=== PATIENT | female | born 1990 | race Two or more races ===

== ENCOUNTER → 2024-03-27 | Outpatient (CLI) | payer MEDICAID, SELFPAY ==
--- NOTE | 2024-03-27 12:42 | XR_ITS ---
Examination: OB Transvaginal ultrasound of the pelvis, complete Technique: Transvaginal sonographic images pelvis performed using taylor scale imaging Exam date and time: March 27, 2024 1355 hours INDICATIONS: Vaginal bleeding beginning 2 days ago FINDINGS: Uterus 10.0 x 6.0 x 6.2 cm pole 0.5 cm corresponds to 6 weeks 2 days gestational age Cardiac motion 120 bpm Subchorionic hemorrhage 2.6 x 1.0 x 2.6 cm Ovaries obscured by bowel gas IMPRESSION: Viable intrauterine gestation 6 weeks 2 days Given the subchorionic hemorrhage, suggest short-term follow-up transvaginal pelvic sonography.
== END | disposition home or self-care (01) ==
LOC: CDIM 12:22
PROVIDERS: Referring Provider Obstetrics & Gynecology; Visit Provider Obstetrics & Gynecology
DX: O20.0 Threatened abortion (principal); Z3A.01 Less than 8 weeks gestation of pregnancy
CPT/HCPCS: 76817

== ENCOUNTER → 2024-05-15 | Outpatient (CLI) | payer MEDICAID, SELFPAY ==
--- NOTE | 2024-05-15 10:26 | XR_ITS ---
Examination: Complete OB ultrasound, less than 14 weeks, transabdominal Date and time of exam: May 15, 2024 at 1110 hrs. Indications: Decreased movement beginning several days ago Technique: Obstetrical ultrasound images less than 14 weeks performed via transabdominal imaging Findings: A normal shaped single intrauterine gestation is present in the uterus. pole 7.2 cm corresponds to 13 weeks 2 days gestational age Cardiac motion 145 BPM Ultrasonographic survey of visible and placental structures unremarkable. Amniotic fluid volume appears appropriate for this estimated gestational age. Right ovary 2.6 cm arterial flow Left ovary 3.4 cm arterial flow Impression: Viable intrauterine gestation 13 weeks 2 days.
== END | disposition home or self-care (01) ==
LOC: SDIM 10:10
PROVIDERS: Referring Provider Obstetrics & Gynecology; Visit Provider Obstetrics & Gynecology
DX: O36.8120 Decreased fetal movements, second trimester, not applicable or unspecified (principal); Z3A.13 13 weeks gestation of pregnancy
CPT/HCPCS: 76801

== ENCOUNTER 2024-11-17 13:14 | Inpatient (IN) | payer MEDICAID, SELFPAY ==
[2024-11-17] VITALS (31 sets, daily range): BP systolic 91–123; BP diastolic 52–73; PULSE 73–96; RESP 16–99; TEMP 36.7–37.1; O2SAT 97–99; BMI 39.5
[2024-11-17 14:03] LABS: ROM Kit Exp Date# 01/18/2028; ROM Kit Lot # 58104371; Swb Mxed in Solvent 1 min? Yes
[2024-11-17 14:04] LABS: ROM Swab Mixed By: PATTC1; Rupture of Fetal Membranes Positive (Negative)
[2024-11-17] MEDS: RINGERS LACTATED 1000 ML 1,000 ML 100 ML IV ×2 (15:02→18:34)
[2024-11-17 15:05] LABS: Basophils # (Auto) 0.0 Thou/mm3 (0.0-0.2); Basophils % (Auto) 1 % (0-2.5); Eosinophils # (Auto) 0.1 Thou/mm3 (0.0-0.5); Eosinophils % (Auto) 1 % (0-10); Hematocrit 33.5 % (36.0-46.0); Hemoglobin 11.7 g/dL (12.0-16.0); Immature Granulocytes Auto 0.07 Thou/mm3 (0.00-0.00); Lymphocytes # (Auto) 1.7 Thou/mm3 (1.0-4.8); Lymphocytes % (Auto) 19 % (10-50); Mean Corpuscular HGB Conc 34.9 g/dl (31.0-37.0); Mean Corpuscular Hemoglobin 33.0 pg (25.0-35.0); Mean Corpuscular Volume 94 fL (80-100); Monocytes # (Auto) 0.5 Thou/mm3 (0.0-0.8); Monocytes % (Auto) 6 % (0-12); Neutrophils # (Auto) 6.4 Thou/mm3 (1.8-7.7); Neutrophils % (Auto) 73 % (37-80); Nucleated Red Blood Cell # 0.00 Thou/mm3 (0.00-0.00); Nucleated Red Blood Cell % 0 /100 WBC (0); Platelet Count 239 Thou/mm3 (140-440); RDW Standard Deviation 46.9 fL (36.4-46.3); Red Blood Count 3.55 Miln/mm3 (4.00-5.20); White Blood Count 8.8 Thou/mm3 (3.6-11.0)
[2024-11-17] MEDS: Ampicillin Inj 2,000 MG in SODIUM CHLORIDE 0.9% (POP) 100 ML 200 MG IV (15:07)
[2024-11-17 15:38] LABS: Syphilis Nonreactive (Nonreactive)
[2024-11-17] MEDS: Ampicillin Inj 1,000 MG in SODIUM CHLORIDE 0.9% (Popper) 50 ML 50 MG IV ×2 (18:33→23:01)
[2024-11-17] MEDS: OXYTOCIN in NS 30 units 30 UNIT/500 ML BAG IV ×2 (18:37→20:01)
--- NOTE | 2024-11-17 19:15 | ESHP_ITS ---
Documentation for date of: 11/17/24 OB Labor/Induct. HPI History of Present Illness Chief complaint: leakage of fluid : 5 Para: 4 Term pregnancies: 4 pregnancies: 0 Living children: 4 History of Abortions: Spontaneous and Elective: 0 History of Vaginal deliveries: 4 History of sections: No History of : No JAVIER: 11/14/24 Gestational Age (weeks): 40 Gestational Age (days): 3 History of present illness: Patient presents for loss of fluid, clear, that occurred at 1100. No regular/painful ctx. No vaginal bleeding. Normal movement. No fevers/chills. History of Present Adequate Care: Yes Narrative: Hx of 4 uncomplicated term , last was in 2021. Proven to 9lb4oz. Obesity, current BMI 39.6 Labs Maternal Blood Type: A Pos Labs: Positive: Rubella Titre and Group Beta Strep, Negative: RPR, Hepatitis B, HIV, Chlamydia and Gonorrhea and Unknown: Herpes Type 1, Herpes Type 2 and Covid-19 Review of Systems Review of Systems Narrative Review of Systems: Review of Systems Systems Reviewed: All systems reviewed, normal except as documented Constitutional Constitutional: Denies body ache(s), Denies chills, Denies fever(s) and Denies headache(s) ENT Ears, Nose, Mouth, and Throat: Denies headache(s) and Denies vertigo Cardiovascular Cardiovascular: Denies chest pain, Denies palpitations, Denies dyspnea and Denies syncope Respiratory Respiratory: Denies cough, Denies dyspnea Gastrointestinal Gastrointestinal: Denies nausea and Denies vomiting Neurologic Neurologic: Denies convulsions, Denies headache(s), Denies other visual disturbances, Denies syncope and Denies vertigo Past Medical History Family History OTHER FAMILY HX: non-contributory Surgical History SURGICAL: Negative Section Social History SOCIAL: No tobacco/ETOH/illicit drug use. , 4 children. Past Medical History Comments PMH COMMENT: Current BMI 39.6 Meds Home Medications and Allergies Home Medications ?Medication ?Instructions ?Recorded ?Confirmed ?Type Vitamin * 1 tab PO QDAY SUPPL EMENT 03/22/17 03/13/21 History #0 tabs Allergies Allergy/AdvReac Type Severity Reaction Status Date / Time No Known Allergies Allergy Verified 03/13/21 05:26 OB Exam Physical Exam Vital signs: Temp Pulse Resp BP Pulse Ox O2 Del Method 98.1 F 88 18 113/68 98 Room Air 11/17/24 18:41 11/17/24 18:49 11/17/24 18:41 11/17/24 18:49 11/17/24 14:14 11/17/24 18:41 Narrative: General: well developed, well nourished, no acute distress, conversant Cardiac: normal heart rate Lungs: breathing without distress Abdomen: soft, gravid, non-tender, no rebound or guarding Extremities: no edema of BLE Detailed Labor and Delivery Exam Dilation (cm): 3 Effacement (%): 60 Cervix position: mid station: -2 Consistency: soft Presentation: Vertex Membranes: ruptured Amniotic fluid: clear Baseline heart rate: 130 monitor accelerations: 15x15 monitor decelerations: None workforce planner variability: Moderate (11-25) Contraction frequency (min): no ctx pattern OB Results Labs 11/17/24 14:35 Labs: Short CBC 11/17/24 Range/Units 14:35 WBC 8.8 (3.6-11.0) Thou/mm3 Hgb 11.7 L (12.0-16.0) g/dL Hct 33.5 L (36.0-46.0) % Plt Count 239 (140-440) Thou/mm3 OB Assessment & Plan Assessment and Plan (1) Full-term PROM with onset of labor within 24 hours of rupture: Status: Acute Assessment and plan: Celeste is a 34yo with SIUP at 40&3wk with PROM, clear, at 1100. SCE: 360/-2. Vitals wnl, benign exam. Reassuring assessment. PMhx/ complicated by: Current BMI 39.6 [place], hx of x4 Proven to 9lb4oz. PNC with Dr. Walker Plan: -Admit to L&D -Establish IV, routine labs -CEFM -Clear liquid diet -Economic Forecaster/consent re: -GBS status positive, Ampicillin per protocol -IV pitocin per protocol -Anticipate -Safe to proceed (2) 40 weeks gestation of : Status: Acute (3) Positive GBS test: Status: Acute
[2024-11-17] MEDS: fentaNYL CIT INJ 50 mCg/ML AMP 2ML 100 MCG IVP (23:56)
[2024-11-18] VITALS (21 sets, daily range): BP systolic 98–247; BP diastolic 53–173; PULSE 66–144; RESP 14–18; TEMP 36.6–37.2; O2SAT 98
[2024-11-18] MEDS: FAMOTIDINE 20 MG TABLET 40 MG PO (00:29)
[2024-11-18] MEDS: IBUPROFEN TAB 400 MG TABLET 800 MG PO ×2 (02:05→15:27)
[2024-11-18] MEDS: METHYLERGONOVINE INJ 0.2 MG/ML VIAL IM (02:07)
[2024-11-18] MEDS: OXYTOCIN in NS 20 units 20 UNIT/1,000 ML BAG 125 UNIT IV (02:11)
--- NOTE | 2024-11-18 02:26 | PD.LDDELS ---
Data (Gerardo) Data Hx Section: No : 5 Term: 4 : 0 Livin Abortions: Spontaneous & Theraputic: 0 Delivery Data (Gerardo) Labor Data Initiation of labor: Augmentation Induction/Augmentation Agent: Pitocin ROM date: 11/17/24 ROM time: 11:00 Amniotic membrane rupture type: Spontaneous Amniotic fluid description: Clear Delivery Data Complete dilation date: 11/18/24 Complete dilation time: 01:32 delivery date: 11/18/24 [place] delivery time: 01:35 Placenta delivery date: 11/18/24 Placenta delivery time: 01:45 Delivered by: Paul Delivery nurse: Madison Moura nurse: Angelica Dolly Pusher at delivery: No Delivery Method Delivery method: Normal Vaginal Delivery Presentation: Vertex Anesthesia Type Anesthesia Type: None Placenta Placenta delivery description: Spontaneous Cord blood sent to lab: Yes cord blood collection: Cord Blood Type Episiotomy Episiotomy description: None EBL Estimated blood loss (ml): 350 Umbilical Cord cord description: 3 Vessels Additional Procedures Celeste is a 34yo s/p uncomplicated at 40&4wk after presenting with SROM, delivering at 0135 on 11/18/2024. On presentation, SCE was 3/60/-2. She progressed with pitocin augmentation to C/C/0 at which point she began pushing. She declined epidural. With good maternal pushing efforts, infant's head delivered OA and restituted AUDELIA. Left anterior shoulder delivered easily followed by posterior shoulder and corpus. had spontaneous cry and was vigorous. Apgars 8/9. placed on maternal abdomen where nose/mouth were suctioned and infant dried/stimulated. After approximately 2 minutes, cord was clamped x2 and cut by FOB. Cord blood collected for typing. With fundal massage and cord traction, placenta delivered spontaneously and intact with 3 vessel peripherally inserted cord. Bimanual massage performed and IV pitocin given per protocol with fundus then firm at u-3cm but deviated to the right. On query, it had been quite some time since patient last voided. Straight cath performed with >500ml clear urine emptied from bladder. Fundus then midline at u-2cm. Inspection of perineum and vagina revealed no lacerations. Sweep within cervix/JESS performed which retrieved a couple handfuls of clot. 0.2mg IM methergine given and bimanual massage performed with hemostasis noted. Cytotec 800mcg [place] placed for continued prophylaxis against bleeding. All counts correct x2. Mom and were doing well when I left the room. Celia Miller MD Complications Complications: none Data (Gerardo) Data [place]'s gender: Female Identification band number: [id number] weight (gms): 4090 g Weight (pounds): 9 lbs and 0.3 ozs [place] length: 51 cm 1 minute: 8 5 minutes: 9
[2024-11-18] MEDS: DOCUSATE SOD 100 MG CAPSULE PO ×2 (08:56→21:02)
[2024-11-18 09:46] LABS: Basophils # (Auto) 0.1 Thou/mm3 (0.0-0.2); Basophils % (Auto) 0 % (0-2.5); Eosinophils # (Auto) 0.0 Thou/mm3 (0.0-0.5); Eosinophils % (Auto) 0 % (0-10); Hematocrit 29.7 % (36.0-46.0); Hemoglobin 10.0 g/dL (12.0-16.0); Immature Granulocytes Auto 0.11 Thou/mm3 (0.00-0.00); Lymphocytes # (Auto) 1.5 Thou/mm3 (1.0-4.8); Lymphocytes % (Auto) 9 % (10-50); Mean Corpuscular HGB Conc 33.7 g/dl (31.0-37.0); Mean Corpuscular Hemoglobin 32.8 pg (25.0-35.0); Mean Corpuscular Volume 97 fL (80-100); Monocytes # (Auto) 0.9 Thou/mm3 (0.0-0.8); Monocytes % (Auto) 6 % (0-12); Neutrophils # (Auto) 14.4 Thou/mm3 (1.8-7.7); Neutrophils % (Auto) 85 % (37-80); Nucleated Red Blood Cell # 0.00 Thou/mm3 (0.00-0.00); Nucleated Red Blood Cell % 0 /100 WBC (0); Platelet Count 206 Thou/mm3 (140-440); RDW Standard Deviation 48.7 fL (36.4-46.3); Red Blood Count 3.05 Miln/mm3 (4.00-5.20); White Blood Count 17.0 Thou/mm3 (3.6-11.0)
[2024-11-19 03:10] VITALS: BP 99/69; PULSE 57; RESP 16; TEMP 36.4; O2SAT 97
[2024-11-19 07:26] VITALS: BP 103/68; PULSE 60; RESP 16; TEMP 36.4; O2SAT 98
[2024-11-19] MEDS: DOCUSATE SOD 100 MG CAPSULE PO (08:54)
[2024-11-19] MEDS: DIPHTH,PERTUSS(ACELL),TET VAC 0.5 ML SYR- ADULT IMi (08:55)
--- NOTE | 2024-11-19 12:10 | PD.LDDS ---
DS: Providers Provider Date of admission: 11/17/24 14:59 Primary care physician: Physician No Primary/Family Admitting Provider: Celia Miller MD Attending Provider on Admission: Celia Miller MD Consults: 11/18/24 02:21 Referral Routine Comment: Attending Provider on DC: Celia Miller MD Discharging Provider: Celia Miller MD DS: Diagnosis Discharge Diagnosis (1) care and examination immediately after delivery: Status: Acute (2) Full-term PROM with onset of labor within 24 hours of rupture: Status: Acute (3) Positive GBS test: Status: Acute (4) 40 weeks gestation of : Status: Acute Problem List Completed Was Problem List Reviewed/Reconciled?: Yes Summary/Hosp Course Brief History: Celeste is a 34yo s/p uncomplicated at 40&4wk after presenting with SROM, delivering at 0135 on 11/18/2024. She has had an uncomplicated course, meeting all milestones and feels ready for discharge home. She is ambulating without lightheadedness, tolerating regular diet no n/v, spontaneously voiding without issue. She has no chest pain or shortness of breath. No fevers or chills. Minimal, appropriate discomfort. Vitals normal, benign exam. Hemodynamically stable with no evidence of infection. PP Hgb 10 from 11.7. Peripartum Data Delivery Method: Normal Vaginal Delivery Episiotomy Description: None Status at Discharge Functional status at discharge: independent ambulation Overall status at discharge: patient is back to baseline Time Spent with Patient Time attestation: Total time spent providing and/or coordinating discharge services: Exam Vital Signs Temp Pulse Resp BP Pulse Ox O2 Del Method 97.6 F 60 16 103/68 98 Room Air 11/19/24 07:26 11/19/24 07:26 11/19/24 07:26 11/19/24 07:26 11/19/24 07:26 11/19/24 07:26 Narrative Exam General: well developed, well nourished, no acute distress, conversant Cardiac: normal heart rate Lungs: breathing without distress Abdomen: soft, post-gravid, non-tender, no rebound or guarding, Fundus firm at u-3cm. Extremities: no pain with palpation of calves, trace edema of BLE Discharge Plan Plan Patient Disposition: HOME (Self Care) Patient condition on transfer: Stable Prescriptions/Referrals Prescriptions/Med Rec: New docusate sodium 100 mg Capsule 100 mg PO BID 10 Days Qty: 20 0RF ibuprofen 800 mg tablet 800 mg PO Q8H PRN (Reason: See Comments) 10 Days Qty: 20 0RF Continued Vitamin * 1 EACH tablet 1 tab PO QDAY Qty: 0 Discontinued ibuprofen 600 mg tablet 600 mg PO Q8H PRN (Reason: pain) Qty: 30 0RF Referrals: No Primary/Family,Physician [Primary Care Provider] Patient/Caregiver Discharge Instructions Discharge Activity: other Other Discharge Activity Instructions:: vaginal rest and no heavy lifting more than 10 pounds for 6 weeks Other Discharge Diet Instructions: Regular Education Materials: After a Vaginal , : Caring for Yourself Print Language: Swedish Activity Restrictions/Additional Instructions: follow up with Dr. Walker in 4 to 6 weeks for visit, call for appointment Stand Alone Forms: Didi Award Info., Patient Portal Info Letter Vaccines Vaccines Given During Stay: TDaP Discharge Order Discharge Orders: Discharge (Routine); Ordered 11/19/24 Ordered By: Celia Miller Planned Discharge Date 11/19/24
--- NOTE | 2024-11-19 13:53 | PC.NURSE ---
Patient and baby did not have bands form in chart. Made new bands form and went over with parent. Made sure both bands matched. Darlene DENNISON present. 2 nurse signatures.
== END 2024-11-19 14:01 | disposition home or self-care (01) | DRG 560 ==
LOC: S4SX 19:40 → S4NX 11-18 05:12
PROVIDERS: Admitting Provider Obstetrics & Gynecology; Visit Provider Obstetrics & Gynecology
DX: O42.02 Full-term premature rupture of membranes, onset of labor within 24 hours of rupture (principal); O99.824 Streptococcus B carrier state complicating childbirth; Z37.0 Single live birth; Z3A.40 40 weeks gestation of pregnancy; Z23 Encounter for immunization; O48.0 Post-term pregnancy
CPT/HCPCS: 36415; 59025; 59409; 84112; 85025; 86780; 86850; 86900; 86901; 90715; 94762; J0290; J2210; J2590; J3010; J7050; J7120; S0191; A9270